=== PATIENT | female | born 1955 | race Caucasian/White ===

== ENCOUNTER 2019-03-18 07:41 | Inpatient (IN) | payer BC ==
[~2019-03-18] VITALS: Ht 170.2 cm; Wt 98.8 kg
[~2019-03-18 07:41] MED LIST: BUPR100; LEVSOD100 PO
[2019-03-18 08:09] LABS: Hematocrit 45.9 % (33.0-51.0); Hemoglobin 15.2 g/dL (11.5-16.0); Mean Corpuscular HGB 30.8 pg (26.0-34.0); Mean Corpuscular HGB Conc 33.1 g/dL (31.5-36.5); Mean Corpuscular Volume 93 fL (80-100); Mean Platelet Volume 10.3 fL (9.1-12.4); Platelet Count 311 K/mm3 (150-400); RDW Standard Deviation 44.2 fL (35.1-46.3); Red Blood Cell Count 4.94 M/mm3 (3.80-5.20); White Blood Cell Count 8.23 K/mm3 (4.00-11.30)
[2019-03-18 08:29] LABS: International Normalized Ratio 0.93; Prothrombin Time Results 9.7 Sec (9.7-11.5)
[2019-03-18 08:39] LABS: Alanine Aminotransfer (ALT/SGP 47 U/L (12-78); Albumin/Globulin Ratio 1.1 (0.8-1.8); Alk Phos 117 U/L (50-136); Anion Gap 11 mmol/L (6-16); Aspartate Aminotrans (AST/SGOT 23 U/L (12-37); Bilirubin, Total 0.8 mg/dL (0.1-1.0); Blood Urea Nitrogen 20 mg/dL (8-24); Bun/Creatinine Ratio 23.9 (12.0-20.0); CHOL/HDL RATIO 3.8; CO2, Blood 21 mmol/L (21-32); Calcium, Blood 10.2 mg/dL (8.5-10.1); Chloride, Blood 109 mmol/L (98-108); Cholesterol 261 mg/dL (50-200); Creatinine, Blood 0.84 mg/dL (0.40-1.00); Globulin, Blood 3.5 g/dL (2.2-4.0); Glomerular Filtration Rate >60 (60-); Glucose, Blood 138 mg/dL (70-99); HDL Cholesterol 68 mg/dL (>39); LDL/HDL RATIO 2.3; Low Density Lipoprotein Chol 158 mg/dL (0-110); Magnesium, Blood 1.9 mg/dL (1.6-2.4); Potassium, Blood 3.3 mmol/L (3.5-5.5); Sodium, Blood 141 mmol/L (136-145); Total Protein, Blood 7.5 g/dL (6.4-8.2); Triglycerides 177 mg/dL (30-160); Troponin I 0.025 ng/mL (0.000-0.040); Very Low Density Lipoprot Chol 35 mg/dL (6-32)
[2019-03-18] MEDS ORDERED: Prilosec Otc20 MG PO (09:54)
--- NOTE | 2019-03-18 10:00 | NUR ---
INITIAL ASSESSMENT PATIENT ARRIVED TO UNIT AT 0945. PATIENT ALERT AND ORIENTED X 4, AFEBRILE. PATIENT DENIES ANY CHEST PAIN/ PRESSURE OR PAIN ANYWHERE ELSE. PATIENT STATES THAT WRIST IS "JUST A LITTLE BIT SORE". PATIENT SATTING 90% AND GREATER ON RA. LUNGS CLEAR THROUGHOUT. PATIENT IN SR WITH OCCASIONAL PVCS. HR IN THE 80S. BP STABLE. TRACE EDEMA NOTED TO BLES. GI WNL. WNL. TR BAND TO R RADIAL WRIST- 12 CC AIR INSTILLED BY GLASS MECHANIC. NO BLEEDING, BRUISING, HEMATOMA NOTED AT THIS TIME. PATIENT INFORMED TO KEEP R WRIST AND HAND IMMOBILE TO PREVENT SITE FROM BLEEDING. AGGRASTAT INFUSING AT 18 MLS/ HOUR FOR DURATION OF [address] GIBSON HERE TO SEE PATIENT. PATIENT ORIENTED TO ROOM AND CALL SYSTEM. BED LOW, CALL LIGHT IN REACH. WILL CONTINUE TO MONITOR PATIENT FREQUENTLY THROUGHOUT SHIFT.
--- NOTE | 2019-03-18 12:42 | NUR ---
PATIENT RESTING QUIETLY IN BED. AFEBRILE. NO COMPLAINTS OF PAIN. REMAINS SATTING 90% AND GREATER ON RA. PATIENT REMAINS IN SR WITH OCCASIONAL PVCS. HR 60S TO 70S. BP STABLE. 2 CC DEFLATED FROM TR BAND. SITE REMAINS WNL- NO BLEEDING, BRUISING, HEMATOMA NOTED. NO OTHER ACUTE CHANGES TO NOTE ON AT THIS TIME. WILL CONTINUE TO MONITOR.
--- NOTE | 2019-03-18 13:05 | NUR ---
2 CC DEFLATED FROM TR BAND. SITE REMAINS WNL. NO BLEEDING, BRUISING, HEMATOMA NOTED. WILL CONTINUE TO MONITOR.
--- NOTE | 2019-03-18 13:48 | NUR ---
2 CC DEFLATED FROM TR BAND. SITE REMAINS WNL- NO BLEEDING, BRUISING, HEMATOMA TO NOTE ON AT THIS TIME. WILL CONTINUE TO MONITOR.
--- NOTE | 2019-03-18 14:26 | NUR ---
2 CC DEFLATED FROM TR BAND. SITE REMAINS STABLE- NO BLEEDING, BRUISING, HEMATOMA NOTED.
--- NOTE | 2019-03-18 14:28 | NUR ---
PATIENT COMPLAINING OF SOME ACHING AND SORENESS TO LEFT CHEST, LEFT SHOULDER AND LEFT NECK. PATIENT GIVEN 1 NITRO. WILL CONTINUE TO MONITOR.
--- NOTE | 2019-03-18 14:40 | NUR ---
PATIENT STATES THAT ACHING AND SORENESS IS "A LITTLE BETTER BUT STILL THERE". PATIENT GIVEN ANOTHER PRN NITRO. WILL CONTINUE TO MONITOR.
--- NOTE | 2019-03-18 14:41 | NUR ---
2 CC DEFLATED FROM TR BAND. SITE REMAINS WNL- NO BLEEDING, BRUISING, HEMATOMA NOTED. WILL CONTINUE TO MONITOR.
--- NOTE | 2019-03-18 14:55 | NUR ---
DR. GIBSON CALLED TO INFORM ABOUT PATIENT'S COMPLAINT OF SORENESS AND ACHING IN LEFT SHOULDER, NECK AND CHEST. INFORMED THAT PATIENT GIVEN 3 DOSES OF NITRO AND THAT PATIENT STATES IT IS BETTER BUT STILL THERE. INFORMED THAT EKG PERFORMED AND SHOWS "SINUS KELECHI, INFERIOR INFARCT, CANNOT RULE OUT ANTERIOR INFARCT, ABNORMAL ECG". INFORMED THAT IT DOES NOT APPEAR THAT THERE IS ANY ST ELEVATION THAT NURSE CAN SEE. STATED THAT HE WOULD COME SEE PATIENT AND TO GIVE OT DOSE OF XANAX.
--- NOTE | 2019-03-18 15:14 | NUR ---
DR. GIBSON IN TO SEE PATIENT AND READ ECG. STATES THAT HE IS NOT CONCERNED THERE IS NO ST ELEVATION AT THIS TIME. WILL CONTINUE TO MONITOR.
--- NOTE | 2019-03-18 15:30 | NUR ---
PATIENT STATES THAT PAIN AND DISCOMFORT IS NOW COMPLETELY GONE AFTER XANAX ADMINISTRATION. WILL CONTINUE TO MONITOR.
--- NOTE | 2019-03-18 16:18 | NUR ---
TR BAND REMOVED TR BAND REMOVED AT THIS TIME. CLEAR OCCLUSIVE DRESSING PLACED TO SITE. NO BLEEDING NOTED. ARM BOARD PLACED BACK ON REMINDER FOR PT. PT INSTRUCTED TO NOTIFY RN IF BLEEDING FROM SITE.
--- NOTE | 2019-03-18 16:52 | NUR ---
PATIENT RESTING QUIETLY IN BED. DENIES PAIN OR DISCOMFORT. DENIES CHEST PAIN OR PRESSURE. AFEBRILE. R RADIAL SITE OOZING SLIGHTLY. CHARGE NURSE INFORMED. SITE CLEANSED, EMILIANO PLACED, TEGADERM PLACED AND PRESSURE DRESSING APPLIED. PATIENT REMAINS SATTING WELL ON RA. PATIENT REMAINS IN NSR WITH OCCASIONAL PVCS. HR 60S TO 70S. BP STABLE. AGGRASTAT REMAINS INFUSING AT 18 MLS/ HOUR. NO OTHER ACUTE CHANGES TO NOTE ON AT THIS TIME. WILL CONTINUE TO MONITOR.
--- NOTE | 2019-03-18 18:33 | NUR ---
SHIFT SUMMARY PATIENT REMAINED ALERT AND ORIENTED, AFEBRILE. PATIENT HAD NO COMPLAINTS OF PAIN AT BEGINNING OF SHIFT, HOWEVER DEVELOPED SORENESS AND ACHING IN LEFT CHEST, SHOULDER AND NECK. PATIENT ENDED UP BEING GIVEN 3 NITRO WHICH HELPED BUT DID NOT ALLEVIATE SYMPTOMS. EKG PERFORMED AND DR. GIBSON NOTIFIED. DR. GIBSON STATED HE WAS NOT CONCERNED DID NOT SHOW ST ELEVATION AND WAS ORDERED TO GIVE PATIENT OT XANAX. PATIENT REPORTED RELIEF SHORTLY AFTER XANAX ADMINISTRATION AND HAS NO COMPLAINTS SINCE. PATIENT HAS REMAINED SATTING WELL ON RA. LUNGS HAVE STAYED CLEAR T/O. PATIENT HAS REMAINED IN SB TO SR WITH OCCASIONAL PVCS. HR 50S TO 80S. BP STABLE. GI WNL- PATIENT DID NOT HAVE BM THIS SHIFT. PATIENT TOLERATING CARDIAC DIET WELL. NO COMPLAINTS OF NAUSEA. WNL- PATIENT VOIDING YELLOW URINE INTO BSC WITH SBA. TR BAND TO R RADIAL HAS BEEN FULLY REMOVED. PATIENT DID HAVE SOME OOZING BUT WAS CLEANED AND REDRESSED AND HAS NOT OOZED SINCE. PATIENT HAS HAD NO BRUISING OR HEMATOMA NOTED AT SITE. AGGRASTAT INFUSING AT 18 MLS/ HOUR- TO BE STOPPED 12 HOURS AFTER STARTED. STARTED AT 0840, TO BE STOPPED AT 2039. PATIENT HAS NO COMPLAINTS AT THIS TIME. BED LOW, CALL LIGHT IN REACH. WILL CONTINUE TO MONITOR UNTIL REPORT GIVEN TO ONCOMING FOOD QUALITY TESTER NURSE SHORTLY.
--- NOTE | 2019-03-18 20:55 | NUR ---
ASSUMED CARE OF PT. REPORT RCV'D FROM ALEXANDER MATAMOROS. PT ALERT AND ORIENTED SITTING UP IN BED WATCHING TV. PT DENIES CHEST PAIN AT THIS TIME STATES THAT HER "LEFT ARM/SHOULDER FEEL STIFF". PT GIVEN A PILLOW TO SUPPORT ARM WITH GOOD PAIN RELIEF. VITAL SIGNS STABLE AT THIS TIME. AGGRASTAT TURNED OFF AT [address]S ORDER. SEE FULL SHIFT ASSESSMENT.
[2019-03-19 05:10] LABS: Hematocrit 41.5 % (33.0-51.0); Hemoglobin 13.5 g/dL (11.5-16.0); Mean Corpuscular HGB 31.3 pg (26.0-34.0); Mean Corpuscular HGB Conc 32.5 g/dL (31.5-36.5); Mean Platelet Volume 10.4 fL (9.1-12.4); Platelet Count 269 K/mm3 (150-400); RDW Coefficient Variation 13.2 % (11.7-14.2); RDW Standard Deviation 47.8 fL (35.1-46.3); Red Blood Cell Count 4.32 M/mm3 (3.80-5.20); White Blood Cell Count 8.38 K/mm3 (4.00-11.30)
[2019-03-19 05:22] LABS: Mean Corpuscular Volume 96 fL (80-100)
[2019-03-19 05:34] LABS: Anion Gap 3 mmol/L (6-16); Blood Urea Nitrogen 20 mg/dL (8-24); Bun/Creatinine Ratio 21.8 (12.0-20.0); CO2, Blood 28 mmol/L (21-32); Calcium, Blood 9.4 mg/dL (8.5-10.1); Chloride, Blood 112 mmol/L (98-108); Cholesterol 208 mg/dL (50-200); Creatinine, Blood 0.92 mg/dL (0.40-1.00); Glomerular Filtration Rate >60 (60-); Glucose, Blood 107 mg/dL (70-99); Magnesium, Blood 2.1 mg/dL (1.6-2.4); Potassium, Blood 4.3 mmol/L (3.5-5.5); Sodium, Blood 143 mmol/L (136-145); Triglycerides 146 mg/dL (30-160)
--- NOTE | 2019-03-19 06:22 | NUR ---
SHIFT SUMMARY NO ACUTE CHANGES OVERNIGHT. PT ABLE TO AMBULATE WITH SBA WITH NO COMPLAINT OF CP/DIZZINESS. RADIAL SITE C/D/I. SHORT PERIOD OF HYPOTENSION NOT REQUIRING INTERVENTION. PT PLACED ON 2L NC OVERNIGHT, SATS DROPPED TO HIGH 80'S WHILE SLEEPING. WILL REPORT TO DAYSHIFT NURSE.
--- NOTE | 2019-03-19 08:00 | NUR ---
INITIAL ASSESSMENT PATIENT RESTING IN BED QUIETLY UPON ENTERING ROOM. PATIENT ALERT AND ORIENTED, AFEBRILE. PATIENT SBA. PATIENT SATTING 90% AND GREATER ON RA. LUNGS CLEAR T/O. PATIENT IN SB TO SR, HR 50S TO 60S. BP STABLE. TRACE EDEMA NOTED TO BLES. PATIENT STATES SHE FEELS A LITTLE CONSTIPATED THIS MORNING. COFFEE AND PRUNE JUICE GIVEN PER PATIENT REQUEST. WNL. R RADIAL SITE DRESSING REMAINS C/D/I- NO SIGNS OF BLEEDING, BRUISING, HEMATOMA NOTED. ARM BOARD REMOVED BUT PATIENT REMINDED THAT THERE ARE STILL MINIMAL RESTRICTIONS ON WRIST AND HAND MOVEMENT. DR. 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 BED LOW, CALL LIGHT IN REACH. WILL CONTINUE TO MONITOR PATIENT FREQUENTLY THROUGHOUT SHIFT.
--- NOTE | 2019-03-19 09:55 | NUR ---
RECEIVED REPORT THAT PATIENT WILL BE GOING BACK TO [employer] SPECIAL[facility] AT 1100 TODAY. INFORMED PATIENT OF THIS AND THAT SHE IS NOT TO DRINK OR EAT ANYMORE UNTIL AFTER THE PROCEDURE.
--- NOTE | 2019-03-19 10:22 | NUR ---
echocardiogram completed
--- NOTE | 2019-03-19 11:00 | NUR ---
[facility] RNS TAKING PATIENT TO REAM CUTTER.
--- NOTE | 2019-03-19 12:30 | NUR ---
PATIENT BACK FROM [facility] [employer] [facility] AT 1210. PATIENT REMAINS ALERT AND ORIENTED, STATES SHE IS "A LITTLE GROGGY". PATIENT AFEBRILE. PATIENT STATES R WRIST IS SORE BUT NO OTHER COMPLAINTS OF PAIN. PATIENT SATTING 90% AND GREATER ON RA. PATIENT IS SB TO SR, HR 50S TO 60S. BP STABLE. GI WNL. WNL. R RADIAL SITE HAS TR BAND IN PLACE FROM SECURITY PUBLIC SAFETY OFFICER ACCESS. 13 CC OF AIR INSTILLED IN CUFF PER SECURITY PUBLIC SAFETY OFFICER NURSE. ARM BOARD IN PLACE. PATIENT REMINDED TO KEEP WRIST IMMOBILE FOR NOW. BRUISING NOTED UNDER TR BAND. NO BLEEDING OR HEMATOMA NOTED. AGGRASTAT INFUSING AT 18 MLS/ HOUR- ORDER TO STOP AFTER FIRST BOTTLE IS COMPLETE. NS INFUSING AT 75 MLS/ HOUR X 5 HOURS. WILL CONTINUE TO MONITOR.
--- NOTE | 2019-03-19 13:42 | NUR ---
TR BAND SITE REMAINS WNL. BRUISING HAS NOT INCREASED IN SIZE. NO BLEEDING OR HEMATOMA NOTED. WILL CONTINUE TO MONITOR.
--- NOTE | 2019-03-19 14:21 | NUR ---
2 CC AIR DEFLATED FROM TR BAND. NO INCREASE IN BRUISING. NO BLEEDING OR HEMATOMA NOTED. WILL CONTINUE TO MONITOR.
--- NOTE | 2019-03-19 14:38 | NUR ---
2 CC DEFLATED FROM TR BAND. NO CHANGES IN BRUISING. NO HEMATOMA OR BLEEDING NOTED. WILL CONTINUE TO MONITOR.
--- NOTE | 2019-03-19 14:49 | NUR ---
2 CC AIR DEFLATED FROM TR BAND. NO INCREASE IN BRUISING NOTED. NO BLEEDING OR HEMATOMA NOTED. WILL CONTINUE TO MONITOR.
--- NOTE | 2019-03-19 15:08 | NUR ---
2 CC DEFLATED FROM TR BAND. NO INCREASE IN BRUISING NOTED. NO HEMATOMA OR BLEEDING NOTED. WILL CONTINUE TO MONITOR.
--- NOTE | 2019-03-19 15:55 | NUR ---
RETURNED FROM LUNCH. CHARGE NURSE, NESHA POON, MONITORED TR BAND SITE AND CONTINUED TO DEFLATE WHILE PRIMARY AT LUNCH. TR BAND IS NOW FULLY DEFLATED. BRUISING HAS NOT INCREASED. NO BLEEDING OR HEMATOMA NOTED. TR BAND AND ARM BOARD REMAIN IN PLACE. WILL CONTINUE TO MONITOR.
--- NOTE | 2019-03-19 16:20 | NUR ---
PATIENT RESTING QUIETLY IN BED. NO COMPLAINTS. AFEBRILE. TR BAND DEFLATED BUT REMAINS IN PLACE, ALONG WITH ARM BOARD. BRUISING HAS NOT INCREASED. NO BLEEDING OR HEMATOMA NOTED. AGGRASTAT COMPLETE. NS REMAINS AT 75 MLS/ HOUR. BLOOD SUGAR OF 101. NO OTHER ACUTE CHANGES TO NOTE ON AT THIS TIME. WILL CONTINUE TO MONITOR.
--- NOTE | 2019-03-19 19:22 | NUR ---
SHIFT SUMMARY PATIENT REMAINED ALERT AND ORIENTED, AFEBRILE T/O SHIFT. PATIENT SBA TO TOILET. PATIENT REMAINED SATTING 90% ON RA. LUNGS REMAINED CLEAR. PATIENT REMAINED IN SB TO SR, HR 50S TO 60S. BP REMAINED STABLE. PATIENT WENT TO [employer] AND HAD 2 MORE STENTS PLACED- ONE IN THE PROXIMAL LAD AND ONE IN THE MID CIRC. TR BAND DEFLATED AND REMOVED THIS SHIFT. R RADIAL REMAINS WNL- NO INCREASE IN BRUISING. NO BLEEDING OR HEMATOMA NOTED. ARM BOARD IN PLACE. PATIENT UNDERSTANDS THE RESTRICTIONS OF RIGHT WRIST. PATIENT COMPLAINED OF CONSTIPATION THIS AM BUT LATER HAD A LARGE, HARD, BROWN BM LATER IN SHIFT. REMAINED WNL. IVS SALINE LOCKED. ECHO PERFORMED TODAY AND SHOWED EF OF 60 TO 65%. BLOOD SUGARS 95 TO 110. PATIENT HAS NO COMPLAINTS AT THIS TIME. BED LOW, CALL LIGHT IN REACH. REPORT HAS BEEN GIVEN TO ASSUMING NURSE, DARWIN JAIN.
--- NOTE | 2019-03-19 20:09 | NUR ---
ASSUMED CARE OF PT. REPORT RCV'D FROM ALEXANDER MATAMOROS. PT ALERT AND ORIENTED SITTING IN BED. PT DENIES PAIN OR SHORTNESS OF BREATH AT THIS TIME. VSS, PT ON ROOM AIR. RIGHT RADIAL SITE BRUISED WITH SCANT OOZING THAT APPEARS UNCHANGED PER DAYSHIFT NURSE. ARM BOARD AND CLEAR DRESSING IN PLACE. PT'S AT BEDSIDE. PLEASE SEE FULL SHIFT ASSESSMENT.
--- NOTE | 2019-03-20 06:18 | NUR ---
SHIFT SUMMARY NO ACUTE CHANGES OVERNIGHT. PT SLEPT WELL WITH NO COMPLAINT OF PAIN. PT ABLE TO INDEPENDENTLY AMBULATE TO TOILET WITH NO DIFFICULTY. RIGHT RADIAL ACCESS SITE C/D/I, PULSES GOOD, NO OOZING. SBP 90'S, HR 60'S. WILL REPORT TO DAYSHIFT NURSE.
[2019-03-20] MEDS ORDERED: PANT40 PO (08:37)
[2019-03-20] MEDS ORDERED: ASPI81CH PO (08:38)
[2019-03-20] MEDS ORDERED: CLOP75 PO (08:39)
[2019-03-20] MEDS ORDERED: ATOR80 PO (08:39)
[2019-03-20] MEDS ORDERED: Metoprolol Tart25 MG PO (08:41)
[2019-03-20] MEDS ORDERED: NITR.4SL SL (08:42)
--- NOTE | 2019-03-20 12:00 | NUR ---
DISCHARGE: GAVE DISCHARGE EDUCATION ON RADIAL ACCESS, NEW MEDICATIONS, DISCONTINUED MEDICATIONS, FOLLOW UP APPOINTMENTS, ADVANCE DIRECTIVES, AND SO ON. DISCHARGE PACKET GIVEN. PT LEFT THE UNIT BY WHEELCHAIR WITH BELONGINGS AND AT HER SIDE. PT DENIES CHEST PAIN AND PRESSURE. MEDICATIONS GIVEN PRIOR TO DISCHARGE.
== END 2019-03-20 12:02 | disposition home or self-care (01) | DRG 247 ==
LOC: ER 07:41 → ICUE 07:52 → ICUW 07:52 → ICUE 08:17
PROVIDERS: Physician Assistant; ADMIT Internal Medicine Interventional Cardiology
PROC: 4A023N7 Measurement of Cardiac Sampling and Pressure, Left Heart, Percutaneous Approach (ICD-10-PCS; principal; 2019-03-19)
PROC: 027135Z Dilation of Coronary Artery, Two Arteries with Two Drug-eluting Intraluminal Devices, Percutaneous Approach (ICD-10-PCS; 2019-03-19)
PROC: B201YZZ Plain Radiography of Multiple Coronary Arteries using Other Contrast (ICD-10-PCS; 2019-03-19)
DX: I21.19 ST elevation (STEMI) myocardial infarction involving other coronary artery of inferior wall (principal); E03.9 Hypothyroidism, unspecified; E78.5 Hyperlipidemia, unspecified
CPT/HCPCS: 36415; 80048; 80053; 80061; 82465; 82947; 83036; 83735; 83880; 84443; 84478; 84484; 85027; 85347; 85610; 85730; 86850; 86900; 86901; 93005; 93010; 93306; 93454; 93458; 96374; 96375; 99152; 99153; 99285-25; C1725; C1769; C1874; C1887; C1894; C9600; C9601; C9606; J0461; J1644; J2250; J3010; J3246; J7030; Q9967